=== PATIENT | female | born 1980 | race Caucasian/White ===

== ENCOUNTER 2021-06-25 04:06 | Emergency (ER) | payer BC, SELFPAY ==
[2021-06-25] MEDS ORDERED: Ondansetron PF 4 MG/2 ML Vial ONE (04:42)
[2021-06-25] MEDS ORDERED: Morphine 4 MG/ML VIAL ONE (04:42)
[2021-06-25] MEDS ORDERED: Ketorolac Tromethamine 30 MG/ML VIAL ONE (04:50)
[2021-06-25] MEDS ORDERED: Lidocaine 1% PF 5 ML VIAL ONE (05:58)
[2021-06-25] MEDS ORDERED: Propofol 1,000 MG/100 ML VIAL IV ONE (06:23)
[2021-06-25] MEDS ORDERED: PROPOFOL 20 ML ONE (06:28)
[2021-06-25] MEDS ORDERED: Fentanyl 100 MCG/2 ML VIAL ONE (06:30)
== END 2021-06-25 08:20 | disposition home or self-care (01) ==
LOC: ERS 04:06
DX: S52.571A Other intraarticular fracture of lower end of right radius, initial encounter for closed fracture (principal); S52.611A Displaced fracture of right ulna styloid process, initial encounter for closed fracture; S59.201A Unspecified physeal fracture of lower end of radius, right arm, initial encounter for closed fracture; W10.9XXA Fall (on) (from) unspecified stairs and steps, initial encounter
CPT/HCPCS: 12011; 25505; 70450; 70486; 72125; 96374; 96375; 99152; 99153; J1885; J2270; J2405; J2704; J3010